=== PATIENT | female | born 1985 | race Caucasian/White ===

== ENCOUNTER → 2022-09-10 | Outpatient (CLI) | payer OTHER, SELFPAY | END | disposition home or self-care (01) | PROVIDERS: PCP Family Medicine; Visit Provider Family Medicine | DX: Z00.00 Encounter for general adult medical examination without abnormal findings (principal) | CPT/HCPCS: 36415 ==

== ENCOUNTER → 2025-10-01 | Outpatient (CLI) | payer OTHER, SELFPAY ==
--- NOTE | 2025-09-28 10:15 | LIP_PTH ---
PATIENT: [address] LOC: [facility] U#:[id number] AGE/SX: 40/F ROOM: RE10/01/[address]: Dr. Ron Bird DO : 1985 BED: DIS: 10/01/2025 SPEC #: [id number] RECD: 10/01/25 12:00 STATUS: PRASHANT REQ #: [id number] KIERA: 09/28/25 10:[address]: Ron Bird DEPT: SURGICAL PATHOLOGY RECD BY: Rex Chung ENTERED: 10/02/25 08:58 SP TYPE: LIPOMA OTHR DR: Dr. Tico Morocho, DO Tissues: A - Soft tissues, NOS Procedures: Surgery Specimen Level III HEADER OPERATION: Left shoulder lipoma excision PRE-OP DIAGNOSIS: Lipoma TISSUE SUBMITTED: A- Left shoulder lipoma MICROSCOPIC DIAGNOSIS A. Soft tissue, shoulder, left, excision: * Lipoma MICROSCOPIC DESCRIPTION Slides are reviewed. GROSS DESCRIPTION A. Received in formalin labeled with the patient's name and date of . Designated as left shoulder lipoma is a 3.7 x 3.1 x 1.2 cm boateng-yellow, lobulated, soft to firm portion of tissue, devoid of orientation. Sectioning reveals yellow, granular, homogenous cut surfaces. Accounting Assistant sections are submitted in 2 cassettes, to include the more fibrotic cut surfaces in cassette A2. [id number]
== END | disposition home or self-care (01) ==
LOC: LABSPEC 15:11
PROVIDERS: PCP Family Medicine; Referring Provider Student in an Organized Health Care Education/Training Program; Visit Provider Student in an Organized Health Care Education/Training Program
DX: D17.79 Benign lipomatous neoplasm of other sites (principal)
CPT/HCPCS: 88304